=== PATIENT | male | born 1995 | race Caucasian/White ===

== ENCOUNTER 2016-09-14 07:35 | Emergency (ER) | payer MEDICAID ==
--- NOTE | 2016-09-14 08:32 | ER Document Report ---
ED General - General Chief Complaint: Psych Problem Stated Complaint: PSYCH EVAL Time seen by provider: 08:27 Mode of Arrival: Ambulatory Information source: Patient Notes: 20-year-old male presents to emergency department stating that his mother wanted him to be evaluated psychiatrically because he was seeing people in his mother's backyard that his mother says were not there. Patient says that he thinks they were trying to steal things from outside the house. The patient reports she took to 3 mg Xanax about 2 days ago but doesn't know if they were really Xanax. He denies suicidal or homicidal ideations and denies any audiovisual hallucinations. He reports little alcohol use no other illicit drug use and says he's been in his usual state of health otherwise recently. Physical Exam: General: Alert, appears well. HEENT: Normocephalic. Atraumatic. PERRLA. Extraocular movements intact. Oropharynx clear. Neck: Supple. Non-tender. Respiratory: No respiratory distress. Clear and equal breath sounds bilaterally. Cardiovascular: Regular rate and rhythm. Abdominal: Normal Inspection. Soft, non-tender. No distension. Normal Bowel Sounds. Back: Non-tender. No deformity or step off. Extremities: All extremities warm with 2+ pulses of cyanosis no edema mild discomfort to palpation diffusely in the right ankle which she reports is chronic. Neurological: Speech clear mentation normal amylase without difficulty moves all extremities well Psychological: Normal affect. Normal Mood. Calm and cooperative Skin: Warm. Dry. Normal color. TRAVEL OUTSIDE OF THE [place] IN LAST 30 DAYS: No - Related Data Allergies/Adverse Reactions: No Known Allergies Allergy (Verified 07/10/14 13:14) Past Medical History - Social History Smoking Status: Never Smoker Frequency of alcohol use: Rare Drug Abuse: Prescription drugs Family History: CAD - Great-grandfather, Hypertension Patient has suicidal ideation: No Patient has homicidal ideation: No Renal/ Medical History: Denies: Hx Peritoneal Dialysis Traumatic Medical History: Reports: Hx Fractures - ankle, hand, ribs, Hx Liver Laceration, Hx Spleen Laceration/Rupture - mild laceration, no surgical repair needed Past Surgical History: Reports: Hx Orthopedic Surgery - right ankle, l hand - Immunizations Hx Diphtheria, Pertussis, Tetanus Vaccination: Yes Review of Systems - Review of Systems Constitutional: Fever. denies: Chills, Malaise, Weakness EENT: denies: Ear pain, Throat pain Cardiovascular: denies: Chest pain, Dyspnea, Syncope Respiratory: denies: Cough, Short of breath Gastrointestinal: denies: Abdominal pain, Diarrhea, Nausea, Vomiting Genitourinary: denies: Burning, Dysuria Musculoskeletal: denies: Back pain, Muscle pain Skin: denies: Rash Hematologic/Lymphatic: denies: Swollen glands Neurological/Psychological: denies: Weakness, Numbness Physical Exam - Vital signs Vitals: Temp Pulse Resp BP Pulse Ox 98.4 F 97 16 125/71 100 09/14/16 07:42 09/14/16 07:42 09/14/16 07:42 09/14/16 07:42 09/14/16 07:42 Course - Vital Signs Vital signs: Temp Pulse Resp BP Pulse Ox 98.4 F 97 16 125/71 100 09/14/16 07:42 09/14/16 07:42 09/14/16 07:42 09/14/16 07:42 09/14/16 07:42 - Laboratory Result Diagrams: 09/14/16 08:10 09/14/16 08:10 Laboratory results interpreted by me: 09/14/16 09/14/16 09/14/16 08:10 08:10 08:10 Hgb 13.0 L Glucose 131 H Albumin 5.1 H Urine Protein 30 H Urine Urobilinogen 2.0 H Salicylates < 1.0 L Acetaminophen < 10 L - EKG Interpretation by Me Additional EKG results interpreted by me: 09/14/16 08:53 EKG reviewed by myself sinus bradycardia 49 no acute changes
[2016-09-14 08:50] LABS: APPEARANCE,URINE CLEAR; BILIRUBIN,URINE NEGATIVE (NEGATIVE); GLUCOSE, URINE NEGATIVE (NEGATIVE); KETONES,URINE NEGATIVE (NEGATIVE); LEUKOCYTE ESTERASE,URINE NEGATIVE (NEGATIVE); NITRITE,URINE NEGATIVE (NEGATIVE); PROTEIN,URINE 30 mg/dL (NEGATIVE); URINE SPECIFIC GRAVITY 1.033
[2016-09-14 08:52] LABS: ALANINE AMINOTRANSFERASE 28 U/L (21-72); ALBUMIN 5.1 g/dL (3.5-5.0); ALKALINE PHOSPHATASE 80 U/L (38-126); ANION GAP 16 (5-19); ASPARTATE AMINO TRANSFERASE 23 U/L (17-59); BILIRUBIN,DIRECT 0.3 mg/dL (0.0-0.4); BILIRUBIN,TOTAL 0.9 mg/dL (0.2-1.3); BLOOD UREA NITROGEN 17 mg/dL (7-20); CARBON DIOXIDE 26 mmol/L (22-30); CHLORIDE 102 mmol/L (98-107); CREATININE RESULT 0.88 mg/dL (0.52-1.25); GLUCOSE 131 mg/dL (75-110); POTASSIUM 4.8 mmol/L (3.6-5.0); SODIUM 143.9 mmol/L (137-145); TOTAL PROTEIN 7.7 g/dL (6.3-8.2)
[2016-09-14 08:54] LABS: ABSOLUTE EOSINOPHILS # (AUTO) 0.2 10^3/uL (0.0-0.6); ABSOLUTE LYMPHOCYTES (AUTO) 1.5 10^3/uL (0.5-4.7); ABSOLUTE MONOCYTES (AUTO) 0.6 10^3/uL (0.1-1.4); ABSOLUTE NEUT (AUTO) 2.9 10^3/uL (1.7-8.2); BASOPHILS % (AUTO) 0.9 % (0-2); EOSINOPHILS % (AUTO) 3.1 % (0-6); HEMATOCRIT 37.9 % (37.9-51.0); HGB HCT DIFFERENCE 1.1; MEAN CORPUSCULAR HEMOGLOBIN 29.2 pg (27.0-33.4); MEAN CORPUSCULAR HGB CONC 34.4 g/dL (32.0-36.0); MEAN CORPUSCULAR VOLUME 85 fl (80-97); MONOCYTES % (AUTO) 12.1 % (3-13); RED BLOOD COUNT 4.46 10^6/uL (4.35-5.55); RED CELL DISTRIBUTION WIDTH 12.4 % (11.5-14.0); SEGMENTED NEUTROPHILS % (AUTO) 54.9 % (42-78); WHITE BLOOD COUNT 5.3 10^3/uL (4.0-10.5)
[2016-09-14 08:55] LABS: ALCOHOL < 10 mg/dL (NONE DETECTED)
[2016-09-14 09:06] LABS: URINE BARBITURATES SCREEN NEGATIVE; URINE METHADONE SCREEN NEGATIVE; URINE OPIATES LOW NEGATIVE; URINE PHENCYCLIDINE SCREEN NEGATIVE
[2016-09-14] MEDS ORDERED: OLANZAPINE 5 MG TAB.RAPDIS PO ONE (10:36)
--- NOTE | 2016-09-14 10:52 | EKG REPORT ---
SEVERITY:- BORDERLINE ECG - SINUS RHYTHM BORDERLINE PROLONGED QT INTERVAL NONSPECIFIC INFEROLATERAL ST-T CHANGES : Confirmed by: Olivier Crain MD 14-Sep-2016 10:52:11
[2016-09-14] MEDS: OLANZAPINE 5 MG TABLET PO SCH (21:50)
[2016-09-14] MEDS ORDERED: BENZTROPINE MESYLATE 1 MG TABLET PO SCH (22:00)
[2016-09-15] MEDS: OLANZAPINE 5 MG TABLET PO SCH (10:10)
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
[2016-09-15 11:38] VITALS: BP 109/66
== END 2016-09-15 11:38 | disposition home or self-care (01) ==
LOC: ER 07:35
DX: F19.10 Other psychoactive substance abuse, uncomplicated (principal); Z79.899 Other long term (current) drug therapy
CPT/HCPCS: 93005; 99285; 36415; 80307 ×4; 85025; 80053; 81001; 93010; J3490 ×4